=== PATIENT | male | born 1960 | race Asian ===

== ENCOUNTER 2021-08-30 10:36 | Emergency (ER) | payer BC ==
[~2021-08-30] VITALS: Ht 175.3 cm; Wt 74.8 kg
[2021-08-30 10:42] VITALS: BP_SYST 103
--- NOTE | 2021-08-30 10:47 | NUR ---
pt taken to bed 9 by JONATAN Betancourt Addendum: 08/30/21 at 1059 by [email or web address] *bed 8*
--- NOTE | 2021-08-30 10:58 | NUR ---
Dr Berumen to bedside to assess patient
[2021-08-30] MEDS ORDERED: NACL 0.9% 1,000 ML IV ONE ×2 (11:00→13:45)
[2021-08-30] MEDS ORDERED: MORPHINE 4 MG INJ. 4 MG/ML VIAL IVP ONE (11:00)
[2021-08-30] MEDS ORDERED: ONDANSETRON HCL 4 MG/2 ML VIAL IVP ONE (11:00)
--- NOTE | 2021-08-30 11:03 | NUR ---
PT PLACED ON MONITOR, B/P, PULSE OX, 20G TO RAC
[2021-08-30 11:16] LABS: BASOPHILS % (AUTO) 0.2 % (0.0-2.0); EOSINOPHILS % (AUTO) 0.1 % (0.0-4.0); HEMATOCRIT 49.1 % (36-54); HEMOGLOBIN 16.5 g/dL (14.0-18.0); LYMPHOCYTES # (AUTO) 0.8 K/uL (1.0-5.5); LYMPHOCYTES % (AUTO) 6.7 % (20.5-51.5); MEAN CORPUSCULAR HEMOGLOBIN 29 pg (27-31); MEAN CORPUSCULAR HGB CONC 34 % (32-36); MEAN CORPUSCULAR VOLUME 86 fL (79.0-98.0); MONOCYTES # (AUTO) 0.3 K/uL (0.0-1.0); MONOCYTES % (AUTO) 2.9 % (1.7-9.3); NEUTROPHILS # (AUTO) 10.7 K/uL (1.8-7.7); NEUTROPHILS % (AUTO) 90.1 % (40.0-70.0); PLATELET COUNT (AUTO) 212 K/uL (130-430); RED CELL DISTRIBUTION WIDTH 12.9 % (9.0-15.0); WHITE BLOOD COUNT (AUTO) 11.8 K/uL (4.8-10.8)
[2021-08-30 11:30] LABS: BILIRUBIN,URINE NEGATIVE (NEGATIVE); BLOOD, URINE NEGATIVE (NEGATIVE); CLARITY/URINE CLEAR (CLEAR); COLOR,URINE YELLOW (YELLOW); GLUCOSE,URINE NEGATIVE (NEGATIVE); KETONES,URINE TRACE (NEGATIVE); LEUKOCYTE ESTERASE ,URINE NEGATIVE (NEGATIVE); NITRITE, URINE NEGATIVE (NEGATIVE); PROTEIN URINE NEGATIVE (NEGATIVE); UROBILINOGEN,URINE 0.2 (0.2-1.0)
[2021-08-30 11:31] LABS: CALCIUM 8.6 mg/dL (8.4-11.0); CREATININE 0.9 mg/dL (0.55-1.30); POTASSIUM 3.4 mmol/L (3.5-5.1)
[2021-08-30 11:37] LABS: ALBUMIN 4.2 g/dL (3.4-4.8); TOTAL BILIRUBIN 0.9 mg/dL (0.0-1.0)
--- NOTE | 2021-08-30 12:43 | NUR ---
Admit bed requested Patient will be admitted to care of Dr. ALVARADO. Admitted to tele unit. Diagnosis SBO Inpatient (Yes or No) Y Observation (Yes or No) N Orientation concerns or request close to nursing station (Yes or No) N Covid Status PEND On vent or bipap N Isolation requirements N Needs a sitter N From Home (Yes or if No enter name of facility) Home Requires Dialysis (Yes or No) N Med Rec Completed (Yes of No) Y
[2021-08-30] MEDS: MORPHINE 4 MG INJ. 4 MG/ML VIAL IVP PRN ×3 (14:46→18:47)
--- NOTE | 2021-08-30 14:55 | NUR ---
pt chepeg in bed at bedside, awaiting for transfer.
--- NOTE | 2021-08-30 16:39 | NUR ---
sbar to july(rn) [facility] room [phone] heather conley
--- NOTE | 2021-08-30 19:45 | NUR ---
Patient to be transferred to [facility]. Is being transferred due to higher level of care. Receiving facility has accepting physician and available space. ER physician has signed transfer form. Patient or responsible constitution party has agreed to transfer and signed form. Patient belongings inventoried and will be sent with patient. Copy of nursing notes, lab reports, EKG, Physicians Orders and X-rays to be sent with patient. Report called to at receiving facility. Receiving physician is . ambulance service has been called for transfer. ETA is .
[2021-08-30 19:55] VITALS: BP_SYST 128
== END 2021-08-30 19:55 | disposition short-term general hospital (02) ==
LOC: SED 10:36
DX: K56.609 Unspecified intestinal obstruction, unspecified as to partial versus complete obstruction (principal); Z20.822 Contact with and (suspected) exposure to COVID-19
CPT/HCPCS: 36415; 74176; 76376; 80053; 81003; 83605; 83690; 85025; 87040; 87426; 96361; 96374; 96375; 96376; 99285; J2270; J2405; J7030